=== PATIENT | female | born 1980 | race Caucasian/White ===

== ENCOUNTER → 2022-07-07 | Emergency (ER) | payer MEDICAID ==
[~2022-07-07] VITALS: Ht 160 cm; Wt 59.0 kg
[~2022-07-07] MED LIST: CLIN300C12 PO; CLINDAMYCIN HCL 150 MG CAPSULE ONE; CLINDAMYCIN HCL 150 MG CAPSULE PO ONE
--- NOTE | 2022-07-07 12:05 | NUR ---
PT SEEN BY FOR [facility]KEN
--- NOTE | 2022-07-07 12:10 | NUR ---
RAPID STREP SWAB OBTAINED AND SENT TO LAB
[2022-07-07 12:16] VITALS: BP 115/63
--- NOTE | 2022-07-07 12:16 | NUR ---
Patient discharged to home in stable condition. Written and verbal after care instructions given. Patient verbalizes understanding of instruction.
== END | disposition home or self-care (01) ==
LOC: ER 11:35
DX: J02.0 Streptococcal pharyngitis (principal); Z88.0 Allergy status to penicillin
CPT/HCPCS: 87070-TC